=== PATIENT | male | born 1950 | race Caucasian/White ===

== ENCOUNTER 2018-06-23 10:48 | Emergency (ER) | payer MEDICARE, OTHER ==
--- NOTE | 2018-06-23 11:01 | ED ---
Complaint/Male - History of Current Complaint Chief Complaint: EDUrogenitalProblems Time Seen by Provider: 06/23/18 10:54 - Allergies/Home Medications Allergies/Adverse Reactions: Allergies Allergy/AdvReac Type Severity Reaction Status Date / Time No Known Allergies Allergy Verified 06/23/18 10:52 PMH/Surg Hx/FS Hx/Imm Hx Infectious Disease History: No Infectious Disease History: Denies: Traveled Outside the [place] in Last 30 Days - Social History Alcohol Use: None Substance Use Type: Reports: None Smoking Status (MU): Former Smoker Physical Exam Vital Signs On Initial Exam: Initial Vitals Temp Pulse Resp BP Pulse Ox 98.5 F 95 16 154/86 98 06/23/18 10:50 06/23/18 10:50 06/23/18 10:50 06/23/18 10:50 06/23/18 10:50 Diagnostics - Vital Signs Vital Signs Temp Pulse Resp BP Pulse Ox 06/23/18 10:50 98.5 F 95 16 154/86 98 - Laboratory Lab Statement: Any lab studies that have been ordered have been reviewed, and results considered in the medical decision making process.
--- NOTE | 2018-06-23 11:03 | ED ---
GI/ HPI - HPI Summary HPI Summary: Patient is an otherwise healthy 67-year-old male presenting to the ED with a three-day history of UTI symptoms including burning with urination, urgency, frequency. Denies any back pain. Denies any hematuria. He states he is otherwise healthy, takes no medications. Patient is overweight, denies smoking history alcohol history or any drug use. Denies any history of prostate problems. Denies any abdominal pain, nausea, vomiting, diarrhea, constipation or suprapubic tenderness. He has never had anything like this before. He endorses trying to take excess out of water, but this has not been improving his symptoms. He does however endorses some sweats and chills intermittently over the past 3 days, but denies any known subjective fevers. - History of Current Complaint Chief Complaint: EDUrogenitalProblems Time Seen by Provider: 06/23/18 10:54 Stated Complaint: GENERAL ILLNESS Hx Obtained From: Patient Onset/Duration: Started Hours Ago Timing: Constant Severity: Mild Current Severity: None Pain Intensity: 4 Associated Signs and Symptoms: Positive: UTI Symptoms Aggravating Factor(s): Nothing Alleviating Factor(s): Nothing - Allergy/Home Medications Allergies/Adverse Reactions: Allergies Allergy/AdvReac Type Severity Reaction Status Date / Time No Known Allergies Allergy Verified 06/23/18 10:52 Home Medications: Home Medications Hydrochlorothiazide TAB* [Hydrodiuril TAB*] 25 mg PO DAILY 06/23/18 [History Confirmed 06/23/18] amLODIPine TAB* [Norvasc 5 mg TAB*] 5 mg PO DAILY 06/23/18 [History Confirmed ] PMH/Surg Hx/FS Hx/Imm Hx Previously Healthy: Yes - Immunization History Hx Pertussis Vaccination: No Immunizations Up to Date: Yes Infectious Disease History: No Infectious Disease History: Denies: Traveled Outside the [place] in Last 30 Days - Social History Occupation: Retired Lives: With Family Alcohol Use: None Hx Substance Use: No Substance Use Type: Reports: None Hx Tobacco Use: Yes Smoking Status (MU): Former Smoker Review of Systems Constitutional: Negative Negative: Fever, Chills, Fatigue, Skin Diaphoresis Negative: Palpitations, Chest Pain Negative: Shortness Of Breath, Cough Negative: Abdominal Pain, Vomiting, Diarrhea, Nausea Positive: burning, dysuria, frequency, pain, urgency. Negative: incontinence Negative: Arthralgia, Myalgia Skin: Negative Neurological: Negative All Other Systems Reviewed And Are Negative: Yes Physical Exam Triage Information Reviewed: Yes Vital Signs On Initial Exam: Initial Vitals Temp Pulse Resp BP Pulse Ox 98.5 F 95 16 154/86 98 06/23/18 10:50 06/23/18 10:50 06/23/18 10:50 06/23/18 10:50 06/23/18 10:50 Vital Signs Reviewed: Yes Appearance: Positive: Well-Appearing, Well-Nourished Head/Face: Positive: Normal Head/Face Inspection Eyes: Positive: EOMI, CATHY, Conjunctiva Clear Neck: Positive: Supple, Nontender, No Lymphadenopathy Respiratory/Lung Sounds: Positive: Clear to Auscultation, Breath Sounds Present Cardiovascular: Positive: RRR, Pulses are Symmetrical in both Upper and Lower Extremities Musculoskeletal: Positive: Strength/ROM Intact Neurological: Positive: Alert, Oriented to Person Place, Time, Speech Normal Psychiatric: Positive: Normal Diagnostics - Vital Signs Vital Signs Temp Pulse Resp BP Pulse Ox 06/23/18 10:50 98.5 F 95 16 154/86 98 - Laboratory Lab Statement: Any lab studies that have been ordered have been reviewed, and results considered in the medical decision making process. GIGU Course/Dx - Course Course Of Treatment: Patient is evaluated for UTI symptoms. UA obtained which shows 3+ WBC, 3+ leukocytes, negative nitrites. Lungs CTA. RRR. Patient appears well and non-toxic. Vital signs stable and patient is nondiaphoretic. Ciprofloxacin 500 mg given to him in the ED. Also Pyridium prescribed. I have discussed with the patient this could be a secondary symptom of the BPH or prostate issues and should continue to follow up with his PCP regarding a PSA. - Diagnoses Differential Diagnoses - Male: Cystitis, Renal Calculi, Urinary Tract Infection , Other - BPH, Prostatitis Provider Diagnoses: UTI (urinary tract infection) Discharge - Sign-Out/Discharge Documenting (check all that apply): Patient Departure - Discharge Plan Condition: Stable Disposition: HOME Prescriptions: Ciprofloxacin TAB* [Cipro 500 MG TAB*] 500 mg PO BID #10 tab Phenazopyridine TAB* [Pyridium 100 mg TAB*] 100 mg PO TID #12 tab Patient Education Materials: Urinary Tract Infection in Men (ED) Referrals: Destinee Akbar MD [Primary Care Provider] - Additional Instructions: Ciprofloxacin twice daily x 5 days Dx. Urinary Tract Infection Drink plenty of fluids. Supplement with cranberry or richardson juice. You may also take an over the counter cranberry supplement. If you have any questions about this, you may ask your pharmacist. If your symptoms have not improved in 1-2 days, if you develop fever, sweats or chills, please go to your emergency room, or call your PCP. Antibiotics were prescribed to you. Please take as directed. Supplement with over the counter probiotics on the opposite schedule of your antibiotic to prevent secondary infections. Do not take together as they may counteract each other. Pyridium: This medication is used to treat pain, burning, increased urination, and increased urge to urinate. These symptoms are usually caused by infection, injury, surgery, catheter, or other conditions that irritate the lower urinary tract. Pyridium will treat the symptoms of a urinary tract infection, but this medication does not treat the actual infection. Take the antibiotic that your doctor prescribes to treat your infection. Pyridium will most likely darken the color of your urine to an orange or red color. This is a normal effect and is not cause for alarm unless you have other symptoms such as pale or yellowed skin, fever, stomach pain, nausea, and vomiting. Darkened urine may also cause stains to your underwear, which may or may not be removed by laundering. It can also permanently stain soft contact lenses, and you should not wear them while taking this medicine. - Billing Disposition and Condition Condition: STABLE Disposition: Home
[2018-06-23 11:28] LABS: Urine Appearance Cloudy; Urine Blood 2+ (Negative); Urine Color Amber; Urine Ketones Trace (Negative); Urine Protein 1+(30 mg/dL) (Negative); Urine Red Blood Cell 3+(>10/hpf) (Absent); Urine Specific Gravity 1.028 (1.010-1.030); Urine Urobilinogen Positive (Negative); Urine White Blood Cell 3+(>20/hpf) (Absent)
[2018-06-23] MEDS ORDERED: Ciprofloxacin TAB* 500 MG PO ONE (11:36)
[2018-06-23 11:53] VITALS: BP 163/79
--- NOTE | 2018-06-25 08:45 | ED ---
Progress - Progress Note Progress Note: Patient's preliminary urine culture reveals 50-75,000 Escherichia coli. Patient was placed on ciprofloxacin. Final results pending. Course/Dx - Course Course Of Treatment: Patient is evaluated for UTI symptoms. UA obtained which shows 3+ WBC, 3+ leukocytes, negative nitrites. Lungs CTA. RRR. Patient appears well and non-toxic. Vital signs stable and patient is nondiaphoretic. Ciprofloxacin 500 mg given to him in the ED. Also Pyridium prescribed. I have discussed with the patient this could be a secondary symptom of the BPH or prostate issues and should continue to follow up with his PCP regarding a PSA. - Diagnoses Provider Diagnoses: UTI (urinary tract infection) Discharge - Sign-Out/Discharge Documenting (check all that apply): Post-Discharge Follow Up - Discharge Plan Condition: Stable Disposition: HOME Prescriptions: Ciprofloxacin TAB* [Cipro 500 MG TAB*] 500 mg PO BID #10 tab Phenazopyridine TAB* [Pyridium 100 mg TAB*] 100 mg PO TID #12 tab Patient Education Materials: Urinary Tract Infection in Men (ED) Referrals: Destinee Akbar MD [Primary Care Provider] - Additional Instructions: Ciprofloxacin twice daily x 5 days Dx. Urinary Tract Infection Drink plenty of fluids. Supplement with cranberry or richardson juice. You may also take an over the counter cranberry supplement. If you have any questions about this, you may ask your pharmacist. If your symptoms have not improved in 1-2 days, if you develop fever, sweats or chills, please go to your emergency room, or call your PCP. Antibiotics were prescribed to you. Please take as directed. Supplement with over the counter probiotics on the opposite schedule of your antibiotic to prevent secondary infections. Do not take together as they may counteract each other. Pyridium: This medication is used to treat pain, burning, increased urination, and increased urge to urinate. These symptoms are usually caused by infection, injury, surgery, catheter, or other conditions that irritate the lower urinary tract. Pyridium will treat the symptoms of a urinary tract infection, but this medication does not treat the actual infection. Take the antibiotic that your doctor prescribes to treat your infection. Pyridium will most likely darken the color of your urine to an orange or red color. This is a normal effect and is not cause for alarm unless you have other symptoms such as pale or yellowed skin, fever, stomach pain, nausea, and vomiting. Darkened urine may also cause stains to your underwear, which may or may not be removed by laundering. It can also permanently stain soft contact lenses, and you should not wear them while taking this medicine. - Billing Disposition and Condition Condition: STABLE Disposition: Home
== END 2018-06-23 11:53 | disposition home or self-care (01) ==
LOC: ED 10:48
DX: N39.0 Urinary tract infection, site not specified (principal); B96.20 Unspecified Escherichia coli [E. coli] as the cause of diseases classified elsewhere; Z87.891 Personal history of nicotine dependence
CPT/HCPCS: 81003; 81015; 87077; 87086; 87186; 99282; A9270-GY